=== PATIENT | male | born 1950 | race Caucasian/White ===

== ENCOUNTER → 2022-04-25 10:04 | Outpatient (BNVA) | payer MEDICARE, SELFPAY | PROVIDERS: PCP Family Medicine; Visit Provider Psychiatry & Neurology Neurology | DX: E11.40 Type 2 diabetes mellitus with diabetic neuropathy, unspecified (principal); G25.81 Restless legs syndrome | CPT/HCPCS: 99212 ==

== ENCOUNTER → 2022-08-23 09:01 | Outpatient (BNVA) | payer MEDICARE, SELFPAY | PROVIDERS: PCP Family Medicine; Visit Provider Psychiatry & Neurology Neurology | DX: E11.40 Type 2 diabetes mellitus with diabetic neuropathy, unspecified (principal); E11.22 Type 2 diabetes mellitus with diabetic chronic kidney disease; I12.9 Hypertensive chronic kidney disease with stage 1 through stage 4 chronic kidney disease, or unspecified chronic kidney disease; N18.9 Chronic kidney disease, unspecified; G25.81 Restless legs syndrome; Z79.84 Long term (current) use of oral hypoglycemic drugs | CPT/HCPCS: 99212 ==

== ENCOUNTER 2022-12-19 11:35 | Outpatient (AMB) | payer MEDICARE, SELFPAY ==
--- NOTE | 2022-12-19 11:15 | MHC.OFFVIS ---
Intake Vital Signs 12/19/22 11:38 Height 5 ft 10 in Weight 186 lb 2 oz BMI 26.7 BP 122/64 Blood Pressure Location Rt brachial Position Sitting Respiration 16 Pulse 78 Pulse Source Pulse Oximeter Pulse Oximetry (%) 93 Oxygen Delivery Method Room Air Intake Visit Reasons: 3mnts f/u appt-confirmed Intake Note: Pt presents to office for 4 month follow up of diabetic neuropathy. Pt reports he experiences foot pain 4 out of 7 days. He reports it is 7/10 and is constant. He denies feeling foot pain while walking, but does reports pain on rest when sitting or laying down. There is pain and numbness more on the left foot than the right. Allergies codeine Allergy (Severe, Verified 12/19/22 11:16) Unknown Medication List - Last Reconciled 12/19/22 by Khadijah Elias MD acetaminophen (Tylenol Extra Strength) 500 mg PO Q6H PRN ascorbic acid (vitamin C) mg PO aspirin 81 mg PO DAILY cholecalciferol (vitamin D3) 25 mcg PO DAILY clonidine 1 patch topical QWEEK cyanocobalamin (vitamin B-12) 1,000 mcg PO BID diphenhydramine HCl (Benadryl) 25 mg PO BEDTIME PRN erythromycin 0 mg ophthalmic-Right BEDTIME PRN zncchawvbpi-grsxcnllj-gryzwsbw 100-62.5-25 mcg (Trelegy Ellipta) 1 inh inhalation DAILY gabapentin 800 mg PO TID glipizide ER 5 mg PO DAILY glucosamine HCl 1,500 mg PO DAILY losartan 25 mg PO DAILY magnesium oxide 400 mg PO BEDTIME metformin ER 1,000 mg PO BID multivitamin 1 tab PO DAILY nebivolol 10 mg PO DAILY nifedipine ER 90 mg PO BEDTIME omega 9-bdp-apn-fish oil 1,000 mg (120 mg-180 mg) (Fish Oil) 1 cap PO DAILY pantoprazole 40 mg PO DAILY pravastatin 20 mg PO DAILY ropinirole 4-8 tabs at bedtime orally; ropinirole ER 2 mg PO BEDTIME sodium polystyrene sulfonate grams PO HPI HPI Comments History of Present Illness Details 71y/o male diabetic neuropathy and restless legs syndrome comes for follow up after 4 months. His RLS is fairly controlled . He is doing ok on amitriptyline gabapentin and ropinirole XR 2mg qhs and requip 0.25 mg 4-8 tabs He still has muscle cramps at night which can be painful. He reports excessive daytime sleepiness. 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 Insomnia Diabetes HTN (hypertension) Social History Alcohol intake: never Patient Tobacco Use Status: Never used Tobacco Physical Exam Vital Signs: Last Vital Signs Pulse 78 12/19/22 11:38 Resp 16 12/19/22 11:38 BP 122/64 12/19/22 11:38 Pulse Ox 93 12/19/22 11:38 Oxygen Delivery Method Room Air 12/19/22 11:38 BMI result Body Mass Index 26.7 Const General: cooperative, healthy appearing and comfortable Nutritional Appearance: average body habitus Orientation/consciousness: patient oriented x3 Neuro General: patient oriented x3, tone normal and moves all extremities Cranial nerves: Yes CN's II-XII intact bilaterally, Yes Facial sensation intact/muscles of mastication intact, Yes Nystagmus not present, Yes Normal facial strength present and Yes Midline tongue present Cognition (Neuro): normal cognition Gait exam (Neuro): Normal gait present Motor exam (neuro): 5/5 motor strength present throughout Deep tendon reflexes (DTR's): Right triceps reflex intensity grade: 1+, Left triceps reflex intensity grade: 1+, Rt Biceps (C5, C6): 1+, Left biceps reflex intensity grade: 1+, Right brachioradialis reflex intensity grade: 1+, Left brachioradialis reflex intensity grade: 1+, Right patellar reflex intensity grade: 1+ and Left patellar reflex intensity grade: 1+ Assessment & Plan Assessment & Plan (1) Diabetic neuropathy: Code(s): E11.40 - Type 2 diabetes mellitus with diabetic neuropathy, unspecified (2) Restless legs syndrome (RLS): Code(s): G25.81 - Restless legs syndrome Plan Continue requip 0.25 mg 4-8 tabs qhs Increase Ropinirole XR 4mg qhs Gabapentin 800mg tid amitriptyline 25mg qhs start magnesium 400mg qhs Medications: Changed From ropinirole ER 2 mg PO BEDTIME 30 tabs 6RF To ropinirole ER 4 mg PO BEDTIME 30 tabs 6RF Coding Level of Care Code Est Pt Level 4 (87518) Diagnoses Diabetic neuropathy E11.40 Restless legs syndrome (RLS) G25.81
[2022-12-19 11:38] VITALS: BP 122/64; PULSE 78; RESP 16; O2SAT 93; BMI 26.7
== END 2022-12-19 12:04 | disposition home or self-care (01) ==
PROVIDERS: PCP Family Medicine; Visit Provider Psychiatry & Neurology Neurology
DX: E11.40 Type 2 diabetes mellitus with diabetic neuropathy, unspecified (principal); G25.81 Restless legs syndrome
CPT/HCPCS: 99214

== ENCOUNTER → 2022-12-19 11:35 | Outpatient (BNVA) | payer MEDICARE, SELFPAY | PROVIDERS: PCP Family Medicine; Visit Provider Psychiatry & Neurology Neurology | DX: E11.40 Type 2 diabetes mellitus with diabetic neuropathy, unspecified (principal); G25.81 Restless legs syndrome | CPT/HCPCS: 99212 ==

== ENCOUNTER 2023-05-16 10:31 | Outpatient (AMB) | payer MEDICARE, SELFPAY ==
--- NOTE | 2023-05-16 10:47 | A.OFFVIS_ITS ---
Intake Vital Signs 05/16/23 10:49 Height 5 ft 10 in Weight 186 lb BMI 26.7 BP 118/68 Blood Pressure Location Rt brachial Position Sitting Respiration 16 Pulse 82 Pulse Source Pulse Oximeter Pulse Oximetry (%) 96 Oxygen Delivery Method Room Air Intake Visit Reasons: 4 mnts f/u for Polyneuropathy, RLS-CONF Intake Note: Pt presents for 4 month follow up for polyneuropathy. [employer] Required: No Allergies codeine Allergy (Severe, Verified 05/16/23 10:48) Unknown HPI HPI Comments History of Present Illness Details 72y/o male diabetic neuropathy and restl ess legs syndrome comes for follow up after 4 months. His RLS is fairly controlled . He is doing ok on gabapentin and ropinirole XR 4mg qhs and requip 0.5mg 4-8 t abs He still has breakthrough symptoms at 8 pm Muscle cramps at night are better He reports excessive daytime sleepiness. 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 Insomnia Diabetes HTN (hypertension) Social History Alcohol intake: never Patient Tobacco Use Status: Never used Tobacco Physical Exam Vital Signs: Last Vital Signs Pulse 82 05/16/23 10:49 Resp 16 05/16/23 10:49 BP 118/68 05/16/23 10:49 Pulse Ox 96 05/16/23 10:49 Oxygen Delivery Method Room Air 05/16/23 10:49 BMI result Body Mass Index 26.7 Const General: cooperative, healthy appearing and comfortable Nutritional Appearance: average body habitus Orientation/consciousness: patient oriented x3 Neuro General: patient oriented x3, tone normal and moves all extremities Cranial nerves: Yes CN's II-XII intact bilaterally, Yes Facial sensation intact/muscles of mastication intact, Yes Nystagmus not present, Yes Normal facial strength present and Yes Midline tongue present Cognition (Neuro): normal cognition Gait exam (Neuro): Normal gait present Motor exam (neuro): 5/5 motor strength present throughout Assessment & Plan Assessment & Plan (1) Diabetic neuropathy: Code(s): E11.40 - Type 2 diabetes mellitus with diabetic neuropathy, unspecified (2) Restless legs syndrome (RLS): Code(s): G25.81 - Restless legs syndrome Plan Continue requip 0.25 mg 4-8 tabs qhs Increase Ropinirole XR 6mg qhs Gabapentin 800mg qam 1/2 at noon and 1 tab qhs magnesium 400mg qhs Medications: Changed From ropinirole ER 4 mg PO BEDTIME 30 tabs 6RF To ropinirole ER 6 mg PO BEDTIME 30 tabs 6RF Coding Level of Care Code Est Pt Level 4 (81014) Diagnoses Diabetic neuropathy E11.40 Restless legs syndrome (RLS) G25.81
[2023-05-16 10:49] VITALS: BP 118/68; PULSE 82; RESP 16; O2SAT 96; BMI 26.7
== END 2023-05-16 11:06 | disposition home or self-care (01) ==
PROVIDERS: PCP Family Medicine; Visit Provider Psychiatry & Neurology Neurology
DX: E11.40 Type 2 diabetes mellitus with diabetic neuropathy, unspecified (principal); G25.81 Restless legs syndrome
CPT/HCPCS: 99214

== ENCOUNTER → 2023-05-16 10:31 | Outpatient (BNVA) | payer MEDICARE, SELFPAY | PROVIDERS: PCP Family Medicine; Visit Provider Psychiatry & Neurology Neurology | DX: E11.42 Type 2 diabetes mellitus with diabetic polyneuropathy (principal); G25.81 Restless legs syndrome; Z79.899 Other long term (current) drug therapy | CPT/HCPCS: 99212 ==

== ENCOUNTER 2023-11-27 08:30 | Outpatient (AMB) | payer MEDICARE, SELFPAY ==
--- NOTE | 2023-11-27 08:36 | MHC.OFFVIS ---
Vital Signs 11/27/23 08:37 Height 5 ft 10 in Weight 179 lb BMI 25.7 BP 130/72 Blood Pressure Location Rt brachial Position Sitting Respiration 16 Pulse 74 Pulse Source Pulse Oximeter Pulse Oximetry (%) 98 Oxygen Delivery Method Room Air Intake Visit Reasons: 6 Month F/U Intake Note: Pt presents tot he office for a 6 month follow up for diabetic neuropathy. [employer]r Required: No Allergies codeine Allergy (Severe, Verified 11/27/23 08:37) Unknown HPI Comments Details: 72y/o male diabetic neuropathy and restless legs syndrome comes for follow up after 4 months. His RLS is fairly controlled .His symptoms start at 6 pm He is on gabapentin and ropinirole XR 6mg qhs and requip 0.5mg 4-8 tabs Muscle cramps at night are better He reports excessive daytime sleepiness. 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 Insomnia Diabetes HTN (hypertension) Social History Alcohol intake: never Patient Tobacco Use Status: Never used Tobacco Physical Exam Vital Signs: Last Vital Signs Pulse 74 11/27/23 08:37 Resp 16 11/27/23 08:37 BP 130/72 11/27/23 08:37 Pulse Ox 98 11/27/23 08:37 Oxygen Delivery Method Room Air 11/27/23 08:37 BMI result Body Mass Index 25.7 Const General: cooperative, healthy appearing and comfortable Nutritional Appearance: average body habitus Orientation/consciousness: patient oriented x3 Neuro General: patient oriented x3, tone normal and moves all extremities Cranial nerves: Yes CN's II-XII intact bilaterally, Yes Facial sensation intact/muscles of mastication intact, Yes Nystagmus not present, Yes Normal facial strength present and Yes Midline tongue present Cognition (Neuro): normal cognition Gait exam (Neuro): Normal gait present Motor exam (neuro): 5/5 motor strength present throughout Assessment & Plan Assessment & Plan (1) Diabetic neuropathy: Code(s): E11.40 - Type 2 diabetes mellitus with diabetic neuropathy, unspecified Category: Medical Qualifiers: Diabetes mellitus complication detail: diabetic polyneuropathy Diabetes mellitus type: type 2 Qualified Code(s): E11.42 - Type 2 diabetes mellitus with diabetic polyneuropathy (2) Restless legs syndrome (RLS): Code(s): G25.81 - Restless legs syndrome Category: Medical Plan Continue requip 0.25 mg 4-8 tabs qhs Ropinirole XR 6mg qhs - q 5 pm Gabapentin 800mg qam 1/2 at noon and 1 tab qhs magnesium 400mg qhs Medications: Changed From ropinirole ER 6 mg PO BEDTIME 30 tabs 6RF To ropinirole ER 6 mg PO .q5pm 90 tabs 6RF Coding Level of Care Code Est Pt Level 4 (37158) Complex EM visit Add On G2211 Diagnoses Diabetic polyneuropathy associated with type 2 diabetes mellitus E11.42 Diabetes mellitus complication detail: diabetic polyneuropathy Diabetes mellitus type: type 2 Restless legs syndrome (RLS) G25.81
[2023-11-27 08:37] VITALS: BP 130/72; PULSE 74; RESP 16; O2SAT 98; BMI 25.7
== END 2023-11-27 09:06 | disposition home or self-care (01) ==
PROVIDERS: PCP Family Medicine; Visit Provider Psychiatry & Neurology Neurology
DX: E11.42 Type 2 diabetes mellitus with diabetic polyneuropathy (principal); G25.81 Restless legs syndrome
CPT/HCPCS: 99214; G2211

== ENCOUNTER → 2023-11-27 08:30 | Outpatient (BNVA) | payer MEDICARE, SELFPAY | PROVIDERS: PCP Family Medicine; Visit Provider Psychiatry & Neurology Neurology | DX: E11.42 Type 2 diabetes mellitus with diabetic polyneuropathy (principal); G25.81 Restless legs syndrome | CPT/HCPCS: 99212 ==

== ENCOUNTER 2024-05-27 09:21 | Outpatient (AMB) | payer MEDICARE, SELFPAY ==
--- NOTE | 2024-05-27 09:22 | A.OFFVIS_ITS ---
Vital Signs 05/27/24 09:24 Height 5 ft 10 in Weight 186 lb BMI 26.7 BP 122/70 Blood Pressure Location Rt brachial Position Sitting Pulse 74 Pulse Source Pulse Oximeter Pulse Oximetry (%) 96 Oxygen Delivery Method Room Air Intake Visit Reasons: 6 Month F/U Intake Note: Patient presents for follow up Neuropathy Allergies codeine Allergy (Severe, Verified 05/27/24 09:25) Unknown Medication List - Last Reconciled 05/27/24 by Khadijah Elias MD acetaminophen (Tylenol Extra Strength) 500 mg PO Q6H PRN ascorbic acid (vitamin C) mg PO aspirin 81 mg PO DAILY cholecalciferol (vitamin D3) 25 mcg PO DAILY clonidine 1 patch topical QWEEK cyanocobalamin (vitamin B-12) 1,000 mcg PO BID diphenhydramine HCl (Benadryl) 25 mg PO BEDTIME PRN erythromycin 0 mg ophthalmic-Right BEDTIME PRN escitalopram oxalate 5 mg PO DAILY mishiienwrc-oqzkrrxbe-hbsguzod 100-62.5-25 mcg (Trelegy Ellipta) 1 inh inhalation DAILY usxhrtiiroi-tabotaewx-yznnlija 100-62.5-25 mcg (Trelegy Ellipta) 1 inh inhalation DAILY gabapentin 800 mg PO QID glipizide ER 2.5 mg PO DAILY glucosamine HCl 1,500 mg PO DAILY losartan 50 mg PO DAILY magnesium oxide 400 mg PO BEDTIME 90 days metformin ER 1,000 mg PO BID multivitamin 1 tab PO DAILY nebivolol 10 mg PO DAILY nifedipine ER 90 mg PO BEDTIME omega 9-gjk-xba-fish oil 1,000 (120-180) mg (Fish Oil) 1 cap PO DAILY pantoprazole 40 mg PO DAILY pravastatin 40 mg PO DAILY propylene glycol 0.6% (Systane Balance) 1 drp ophthalmic (eye) DAILY PRN sodium bicarbonate 650 mg PO DAILY PRN sodium polystyrene sulfonate grams PO venlafaxine ER 75 mg PO DAILY HPI Comments Details: 72y/o male diabetic neuropathy and restless legs syndrome comes for follow up after 4 months. His RLS is fairly controlled .His symptoms start at 6 pm He stopped ropinirole XR and short acting as he had some daytime sleepiness. 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 Insomnia Diabetes HTN (hypertension) Social History Alcohol intake: never Patient Tobacco Use Status: Never used Tobacco Physical Exam Vital Signs: Last Vital Signs Pulse 74 05/27/24 09:24 BP 122/70 05/27/24 09:24 Pulse Ox 96 05/27/24 09:24 Oxygen Delivery Method Room Air 05/27/24 09:24 BMI result Body Mass Index 26.7 Const General: cooperative, healthy appearing and comfortable Nutritional Appearance: average body habitus Orientation/consciousness: patient oriented x3 Neuro General: patient oriented x3, tone normal and moves all extremities Cranial nerves: Yes CN's II-XII intact bilaterally, Yes Facial sensation intact/muscles of mastication intact, Yes Nystagmus not present, Yes Normal facial strength present and Yes Midline tongue present Cognition (Neuro): normal cognition Gait exam (Neuro): Normal gait present Motor exam (neuro): 5/5 motor strength present throughout Assessment & Plan Assessment & Plan (1) Diabetic neuropathy: Code(s): E11.40 - Type 2 diabetes mellitus with diabetic neuropathy, unspecified Category: Medical Qualifiers: Diabetes mellitus type: type 2 Diabetes mellitus complication detail: diabetic polyneuropathy Qualified Code(s): E11.42 - Type 2 diabetes mellitus with diabetic polyneuropathy (2) Restless legs syndrome (RLS): Code(s): G25.81 - Restless legs syndrome Category: Medical Plan Gabapentin 800mg qid - monitor side effects magnesium 400mg qhs F/u as needed Medications: Discontinued ropinirole Discontinued Reason: Patient no longer taking 4-8 tabs at bedtime orally; 720 tabs 2RF ropinirole ER Discontinued Reason: Patient no longer taking 6 mg PO .q5pm 90 tabs 6RF Coding Level of Care Code Est Pt Level 4 (76200) Complex EM visit Add On G2211 Diagnoses Diabetic polyneuropathy associated with type 2 diabetes mellitus E11.42 Diabetes mellitus type: type 2 Diabetes mellitus complication detail: diabetic polyneuropathy Restless legs syndrome (RLS) G25.81
[2024-05-27 09:24] VITALS: BP 122/70; PULSE 74; O2SAT 96; BMI 26.7
== END 2024-05-27 09:44 | disposition home or self-care (01) ==
LOC: HO.HSMS 09:21
PROVIDERS: PCP Family Medicine; Visit Provider Psychiatry & Neurology Neurology
DX: E11.42 Type 2 diabetes mellitus with diabetic polyneuropathy (principal); G25.81 Restless legs syndrome
CPT/HCPCS: 99214; G2211

== ENCOUNTER → 2024-05-27 09:21 | Outpatient (BNVA) | payer MEDICARE, SELFPAY | PROVIDERS: PCP Family Medicine; Visit Provider Psychiatry & Neurology Neurology | DX: E11.42 Type 2 diabetes mellitus with diabetic polyneuropathy (principal); G25.81 Restless legs syndrome; Z79.84 Long term (current) use of oral hypoglycemic drugs | CPT/HCPCS: 99212 ==